=== PATIENT | female | born 1985 | race Caucasian/White ===

== ENCOUNTER 2018-06-09 07:01 | Day surgery (SDC) | payer OTHER ==
[~2018-06-09] VITALS: Ht 154.9 cm; Wt 54.4 kg
[2018-06-09 07:27] VITALS: BP 142/92
[2018-06-09 12:54] VITALS: BP 129/88
== END 2018-06-09 11:20 | disposition home or self-care (01) ==
LOC: DS 07:01 → OR 07:30 → DS 07:30 → OR 09:00 → DS 09:00
DX: N72 Inflammatory disease of cervix uteri (principal); I10 Essential (primary) hypertension; Z98.890 Other specified postprocedural states; Z79.899 Other long term (current) drug therapy; Z72.89 Other problems related to lifestyle
CPT/HCPCS: C1758; J2405; J2704; J3010; J7120